=== PATIENT | male | born 1970 | race Caucasian/White ===

== ENCOUNTER 2019-05-16 17:48 | Inpatient (IN) | payer BC, OTHER ==
[2019-05-16] MEDS ORDERED: NORMAL SALINE 1000 ML 1,000 ML IV ONE (18:03)
--- NOTE | 2019-05-16 18:05 | ER Document Report ---
ED Medical Screen (RME) - General Chief Complaint: Abdominal Pain Stated Complaint: STOMACH PAIN Time Seen by Provider: 05/16/19 17:58 Primary Care Provider: SUSANNA CARMONA MD [Primary Care Provider] - Follow up as needed Information source: Patient Notes: Patient presents complaining of abdominal pain with nausea and vomiting for the past 4 days. Patient states he last vomited yesterday although does have nausea today. Patient complains of brown urine and increased heart rate. I have greeted and performed a rapid initial assessment of this patient. A comprehensive ED assessment and evaluation of the patient, analysis of test results and completion of the medical decision making process will be conducted by additional ED providers. - Related Data Allergies/Adverse Reactions: No Known Allergies Allergy (Verified 05/16/19 17:56) Physical Exam - Vital signs Vitals: Temp Pulse Resp BP Pulse Ox 98.1 F 134 H 16 125/98 H 96 05/16/19 17:52 05/16/19 17:52 05/16/19 17:52 05/16/19 17:52 05/16/19 17:52 - General General appearance: Alert Notes: Heart rate 120s, generalized abdominal tenderness Course - Vital Signs Vital signs: Temp Pulse Resp BP Pulse Ox 98.1 F 134 H 16 125/98 H 96 05/16/19 17:52 05/16/19 17:52 05/16/19 17:52 05/16/19 17:52 05/16/19 17:52 Doctor's Discharge - Discharge Referrals: SUSANNA CARMONA MD [Primary Care Provider] - Follow up as needed
--- NOTE | 2019-05-16 18:41 | RADIOLOGY REPORT (SQ) ---
EXAM DESCRIPTION: ACUTE ABDOMEN SERIES COMPLETED DATE/TIME: 05/16/2019 6:24 pm REASON FOR STUDY: generalized abd pain COMPARISON: None. NUMBER OF VIEWS: Three views. TECHNIQUE: PA chest, supine abdomen and upright/decubitus abdomen radiographic images acquired. LIMITATIONS: None. FINDINGS: CHEST: Lungs clear of infiltrates. FREE AIR: None. No abnormal gas collections. BOWEL GAS PATTERN: Few scattered small bowel loops with air fluid levels. No distended large or small bowel loops. CALCIFICATIONS: No suspicious calcifications. HARDWARE: None in the abdomen. SOFT TISSUES: No gross mass or suggestion of organomegaly. BONES: No acute fracture. No worrisome bone lesions. OTHER: No other significant finding. IMPRESSION: NONSPECIFIC BOWEL GAS PATTERN WITHOUT EVIDENCE FOR OBSTRUCTION. TECHNICAL DOCUMENTATION: JOB ID: [id number]- All Rights Reserved Reading location - IP/workstation name: [email or web address]
[2019-05-16 18:50] LABS: APPEARANCE,URINE CLOUDY; BILIRUBIN,URINE SMALL (NEGATIVE); COLOR,URINE AMBER; GLUCOSE, URINE NEGATIVE (NEGATIVE); KETONES,URINE TRACE mg/dL (NEGATIVE); PROTEIN,URINE 100 mg/dL (NEGATIVE); URINE SPECIFIC GRAVITY 1.023
[2019-05-16 19:32] LABS: HEMATOCRIT 52.5 % (37.9-51.0); MEAN CORPUSCULAR HEMOGLOBIN 31.9 pg (27.0-33.4); MEAN CORPUSCULAR HGB CONC 34.2 g/dL (32.0-36.0); MEAN CORPUSCULAR VOLUME 94 fl (80-97); PLATELET COUNT 168 10^3/uL (150-450); RED BLOOD COUNT 5.62 10^6/uL (4.35-5.55); RED CELL DISTRIBUTION WIDTH 13.9 % (11.5-14.0); WHITE BLOOD COUNT 24.6 10^3/uL (4.0-10.5)
[2019-05-16 19:51] LABS: ABSOLUTE LYMPHOCYTES# (MANUAL) 0.7 10^3/uL (0.5-4.7); ABSOLUTE MONOCYTES # (MANUAL) 2.5 10^3/uL (0.1-1.4); BAND NEUTROPHILS % (MANUAL) 2 % (3-5); BASOPHILS % (MANUAL) 0 % (0-2); EOSINOPHILS % (MANUAL) 0 % (0-6); LYMPHOCYTES % (MANUAL) 3 % (13-45); MONOCYTES % (MANUAL) 10 % (3-13); SEGMENTED NEUTROPHILS % (MAN) 85 % (42-78); TOTAL CELLS COUNTED 100
[2019-05-16 19:52] LABS: PLATELET COMMENT ADEQUATE; RBC MORPHOLOGY COMMENT NORMO-CYTIC/CHROMIC
[2019-05-16 19:55] LABS: ALBUMIN 3.6 g/dL (3.5-5.0); ALKALINE PHOSPHATASE 98 U/L (38-126); ANION GAP 10 (5-19); ASPARTATE AMINO TRANSFERASE 87 U/L (17-59); BILIRUBIN,DIRECT 1.5 mg/dL (0.0-0.4); BILIRUBIN,TOTAL 2.9 mg/dL (0.2-1.3); BLOOD UREA NITROGEN 11 mg/dL (7-20); CALCIUM 9.1 mg/dL (8.4-10.2); CARBON DIOXIDE 28 mmol/L (22-30); CHLORIDE 92 mmol/L (98-107); GLUCOSE 112 mg/dL (75-110); POTASSIUM 3.5 mmol/L (3.6-5.0); TOTAL PROTEIN 6.3 g/dL (6.3-8.2)
[2019-05-16] MEDS ORDERED: ONDANSETRON HCL INJ/PF 4 MG/2 ML SDV IV ONE ×2 (19:58→23:18)
[2019-05-16] MEDS ORDERED: HYDROMORPHONE HCL INJ/PF 2 MG/ML AMPULE IV ONE ×2 (19:58→23:18)
[2019-05-16] MEDS ORDERED: CEFTRIAXONE 2 GM/D5W RTU 2 GM/50 ML RTUPB IV ONE (19:58)
--- NOTE | 2019-05-16 21:11 | RADIOLOGY REPORT (SQ) ---
EXAM DESCRIPTION: CT abdomen pelvis with IV contrast. CLINICAL HISTORY: 48 years Male diverticulitis COMPARISON: Abdominal series from today. TECHNIQUE: Axial images with IV contrast. Contrast dose not available. Sagittal coronal reconstruction. This exam was performed according to our departmental dose-optimization program, which includes automated exposure control, adjustment of the mA and/or kV according to patient size and/or use of iterative reconstruction technique. FINDINGS: Small left lower lobe atelectasis. Diffuse fatty liver. Low-density in the anterior aspect of the left lobe of the liver is consistent with normal variation. Moderate to prominent distention of the gallbladder. No obvious wall thickening. No significant biliary dilatation. Question subtle common bile duct wall thickening. Series 601 image 33. Spleen, adrenal glands, para-aortic regions, kidneys are unremarkable. Mildly atherosclerotic minimally ectatic aorta. Mild diffuse enlargement of the pancreas. Diffuse mild immediate peripancreatic edema. Additional fluid in the anterior pararenal spaces bilaterally and extending inferiorly in the retroperitoneum and adjacent mesentery. Possible small fluid collections. No dominant fluid collection and no fluid collection with well-defined logan. Suspected thickening of the duodenum adjacent to the pancreas. Small bowel loops are otherwise unremarkable. Mildly dilated right and transverse colon. Contracted left colon with prominence of submucosal fat. This sometimes is seen with previous colitis. There is no acute colitis. CT of the pelvis demonstrates inwk-[id number]-ggwubrko free fluid. Some appears mildly loculated but no obvious well-defined cystic structure. Urinary bladder unremarkable. Distal colon is unremarkable. No adenopathy. IMPRESSION: 1. Suspected acute pancreatitis. Mainly peripancreatic component. No obvious necrotizing pancreatitis. The surrounding edema/fluid is widespread but not prominent. Specifically, no suspicious large fluid collection and no obvious fluid collection with well-defined logan. There is also [id number] ascites in the pelvis. 2. Secondary thickening of the duodenum. Mild right colonic dilatation. Contracted left colon with prominence of submucosal fat. 3. Fatty liver. 4. Tiny left lower lobe atelectasis. 5. Distended gallbladder. No obvious gallbladder wall thickening. No biliary dilatation. Possible minimal common bile duct wall thickening.
--- NOTE | 2019-05-16 21:44 | ER Document Report ---
ED GI/ - General Chief Complaint: Abdominal Pain Stated Complaint: STOMACH PAIN Time Seen by Provider: 05/16/19 17:58 Primary Care Provider: SUSANNA CARMONA MD [Primary Care Provider] - Follow up as needed Information source: Patient - HPI Patient complains to provider of: Abdominal pain. No: Diarrhea, Dysuria, Feeding tube problem, Flank pain, Lopez catheter problem, Groin pain, Hematuria, Testicular pain, Urinary retention, Vomiting, Other Onset: Yesterday Timing/Duration: Gradual. denies: Sudden, Constant, Intermittent, Persistent, Waxing and waning, Better, Worse, Gone Quality of pain: Pressure, Sharp Severity at maximum: Severe Severity in ED: Severe Pain Level: 3 Context: denies: Bad food, Lifting, Out of the country travel, , Recent trauma, Other Location: LUQ. No: Chest pain, Epigastric, LLQ, RUQ, RLQ, Left flank, Right flank, Low back, Suprapubic, Pelvis, Left testicle, Right testicle, Rectal, Other Associated symptoms: Constipation, Vomiting. denies: None, Blood in emesis, Blood in stool, Chest pain, Chills, Coffee ground emesis, Diarrhea, Dizzy, Dysuria, Erection problem, Fever, Foreskin problem, Hard stool, Hematuria, Hematospermia, Hurts to breath, Inguinal mass, Lightheaded, Loss of appetite, Nausea, Painful intercourse, Penile discharge, Radiates to back, Radiates to chest, Radiates to testicles, Radiates to shoulder, Shortness of breath, Sweaty, Syncope, Urinary hesitancy, Urinary frequency, Urinary retention, Urinary urgency, Other Exacerbated by: denies: Denies, Supine, Sitting, Standing, Movement, Walking, Coughing, Deep breathing, Food, Other Relieved by: denies: Denies, Supine, Sitting, Standing, Remaining still, Antacids, Food, Other - Related Data Allergies/Adverse Reactions: No Known Allergies Allergy (Verified 05/16/19 17:56) Past Medical History - General Information source: Patient - Social History Smoking Status: Current Every Day Smoker Family History: None Patient has suicidal ideation: No Patient has homicidal ideation: No Review of Systems - Review of Systems Constitutional: Fever. denies: No symptoms reported, See HPI, Chills, Diaphoresis, Malaise, Weakness, Other, Weight gain, Weight loss, Recent illness EENT: denies: No symptoms reported, See HPI, Eye pain, Eye discharge, Blurred vision, Tearing, Double vision, Ear pain, Ear discharge, Nose pain, Nose congestion, Nose discharge, Sinus pressure, Sinus discharge, Throat pain, Difficulty swallowing, Throat swelling, Mouth pain, Mouth swelling, Dental problem, Vertigo, Other Cardiovascular: denies: No symptoms reported, See HPI, Chest pain, Palpitations, Heart racing, Orthopnea, Dyspnea, Syncope, Dizziness, Lightheaded, Edema, Other, Paroxysmal Nocturnal Dysp Respiratory: denies: No symptoms reported, See HPI, Cough, Hurts to breathe, Hemoptysis, Short of breath, Sputum, Stridor, Wheezing, Other Gastrointestinal: Abdominal pain, Vomiting, Constipation. denies: No symptoms reported, See HPI, Abdomen distended, Diarrhea, Nausea, Blood streaked bowels, Poor appetite, Poor fluid intake, Blood in vomit, Black stools, Rectal bleeding, Last bowel movement, Fecal incontinence, Other Genitourinary: denies: No symptoms reported, See HPI, Burning, Dysuria, Discharge, Frequency, Flank pain, Hematuria, Incontinence, Pain, Urgency, Retention, Other Male Genitourinary: See HPI, Erectile dysfunction, Testicular pain, Penile discharge, Other Neurological/Psychological: denies: No symptoms reported, See HPI, Confusion, Dementia, Depression, Hallucinations, Anxiety, Homicidal ideation, Sensory change, Weakness, Gait changes, Loss of power, Paralysis, Seizure, Lost consciousness, Headaches, Speech impairment, Numbness, Suicidal ideation, Tingling, Tremor, Other Physical Exam - Vital signs Vitals: Temp Pulse Resp BP Pulse Ox 98.1 F 134 H 16 125/98 H 96 05/16/19 17:52 05/16/19 17:52 05/16/19 17:52 05/16/19 17:52 05/16/19 17:52 Notes: PHYSICAL EXAMINATION: GENERAL: Well-appearing, well-nourished and in no acute distress. HEAD: Atraumatic, normocephalic. EYES: Pupils equal round and reactive to light, extraocular movements intact, sclera anicteric, conjunctiva are normal. ENT: nares patent, oropharynx clear without exudates. Moist mucous membranes. NECK: Normal range of motion, supple without lymphadenopathy LUNGS: Breath sounds clear to auscultation bilaterally and equal. No wheezes rales or rhonchi. HEART: Regular rate and rhythm without murmurs ABDOMEN: Soft, tender in luq to palpation, normoactive bowel sounds. No guarding, no rebound. No masses appreciated. : normal testicle on the right side prosthetic testicle on the left side no masses or hernias appreciated EXTREMITIES: Normal range of motion, no pitting or edema. No cyanosis. NEUROLOGICAL: No focal neurological deficits. Moves all extremities spontaneously and on command. PSYCH: Normal mood, normal affect. SKIN: Warm, Dry, normal turgor, no rashes or lesions noted. Course - Vital Signs Vital signs: Temp Pulse Resp BP Pulse Ox 98.1 F 134 H 16 131/90 H 91 L 05/16/19 17:52 05/16/19 17:52 05/16/19 17:52 05/16/19 20:51 05/16/19 20:51 - Laboratory Result Diagrams: 05/16/19 19:14 05/16/19 19:14 Laboratory results interpreted by me: 05/16/19 05/16/19 05/16/19 18:25 19:14 19:14 WBC 24.6 H RBC 5.62 H Hgb 18.0 H Hct 52.5 H Seg Neuts % (Manual) 85 H Band Neutrophils % 2 L Lymphocytes % (Manual) 3 L Abs Neuts (Manual) 21.4 H Abs Monocytes (Manual) 2.5 H Sodium 129.8 L Potassium 3.5 L Chloride 92 L Glucose 112 H Total Bilirubin 2.9 H Direct Bilirubin 1.5 H AST 87 H Lipase 1228.4 H Urine Protein 100 H Urine Ketones TRACE H Urine Blood MODERATE H Urine Bilirubin SMALL H Urine Urobilinogen 4.0 H - Diagnostic Test Radiology reviewed: Image reviewed, Reports reviewed Discharge - Discharge Clinical Impression: Acute pancreatitis Qualifiers: Pancreatitis type: unspecified pancreatitis type Acute pancreatitis complication: unspecified Qualified Code(s): K85.90 - Acute pancreatitis without necrosis or infection, unspecified Condition: Stable Disposition: ADMITTED INPATIENT Admitting Provider: Idalia (Hospitalist) Unit Admitted: Telemetry Referrals: REED BUTLER MD [ACTIVE STAFF] - Follow up as needed
[2019-05-17] MEDS ORDERED: MAGNESIUM HYDROXIDE SUSP 30 ML UDCUP PO PRN (00:45)
[2019-05-17] MEDS ORDERED: MAG HYDROX/AL HYDROX/SIMETH SUSP 30 ML UDCUP PO PRN (00:45)
[2019-05-17] MEDS ORDERED: MORPHINE SULFATE 10 MG/ML INJ IV PRN ×3 (00:57→02:32)
[2019-05-17] MEDS ORDERED: ACETAMINOPHEN 650 MG SUPP.RECT PR PRN (00:57)
[2019-05-17] MEDS ORDERED: ACETAMINOPHEN 325 MG TABLET PO PRN (00:57)
[2019-05-17] MEDS ORDERED: LEVALBUTEROL HCL NEB 0.63 MG/3 ML AMPUL NEB PRN (00:57)
[2019-05-17] MEDS ORDERED: LABETALOL HCL INJ 20 MG/4 ML DISP.SYRIN IV PRN (00:57)
[2019-05-17] MEDS ORDERED: FAMOTIDINE INJ/PF 20 MG/2 ML SDV IV ONE (01:15)
[2019-05-17] MEDS: ONDANSETRON HCL INJ/PF 4 MG/2 ML SDV IV PRN (03:03)
[2019-05-17 03:43] LABS: APPEARANCE,URINE SLIGHTLY-CLOUDY; BILIRUBIN,URINE NEGATIVE (NEGATIVE); COLOR,URINE AMBER; GLUCOSE, URINE NEGATIVE (NEGATIVE); KETONES,URINE 20 mg/dL (NEGATIVE); LEUKOCYTE ESTERASE,URINE NEGATIVE (NEGATIVE); NITRITE,URINE NEGATIVE (NEGATIVE); PROTEIN,URINE 100 mg/dL (NEGATIVE); URINE SPECIFIC GRAVITY 1.032
--- NOTE | 2019-05-17 04:20 | PDOC H&P ---
History of Present Illness Admission Date/PCP: 05/16/19 22:09 REED BUTLER Patient complains of: Abdominal pain History of Present Illness: WAYNE MEADE is a 48 year old male who presented to the emergency room with a 4-day history of abdominal pain. Patient admits to gradually worsening pain over the last 4 days becoming severe today. The pain was located in epigastrium initially but gradually moved down to his upper periumbilical abdomen and is a constant "sharp" pressure radiating through to his back. The pain has been accompanied by nausea with vomiting and is associated with the development of dark brown urine. He denies any additional accompanying or associated signs or symptoms. He denies prior similar episodes. He has not identified any aggravating or ameliorating factors for his abdominal pain. In the emergency room the patient was found to have an elevated lipase of [address] scan consistent with acute pancreatitis. Patient was subsequently admitted to the hospital for further evaluation treatment. Past Medical History Cardiac Medical History: Denies: Coronary Artery Disease, Myocardial Infarction, Hyperlipidema, Hypertension Pulmonary Medical History: Denies: Asthma, Chronic Obstructive Pulmonary Disease (COPD) EENT Medical History: Denies: Cataracts, Ears - Hearing aids Neurological Medical History: Denies: Hemorrhagic CVA, Ischemic CVA, Seizures Endocrine Medical History: Denies: Diabetes Mellitus Type 1, Diabetes Mellitus Type 2, Hyperthyroidism, Hypothyroidism, Obesity Renal/ Medical History: Denies: Chronic Kidney Disease, Nephrolithiasis Malignancy Medical History: Reports: None GI Medical History: Denies: Cirrhosis, Crohn's Disease, Gastroesophageal Reflux Disease, Hepatitis, Peptic Ulcer Disease, Ulcerative Colitis Musculoskeltal Medical History: Denies: Arthritis, Gout Skin Medical History: Denies: Eczema, Psoriasis Psychiatric Medical History: Denies: Alcohol Dependency, Substance Abuse, Tobacco Dependency Traumatic Medical History: Reports: None Hematology: Denies: Anemia, Bleeding Tendencies Infectious Medical History: Reports: None Past Surgical History Past Surgical History: Reports: Other - Nasal septal deviation repair Social History Information Source: Patient Lives with: Spouse/Significant other Smoking Status: Former Smoker Electronic Cigarette use?: Yes Frequency of Alcohol Use: Social - 1 or 2 times per week consuming 1-4 cocktails per event Hx Recreational Drug Use: No Drugs: None Hx Prescription Drug Abuse: No - Advance Directive Resuscitation Status: Full Code Surrogate healthcare decision maker:: Mariano Veroniak Family History Family History: CAD, DM, Hyperlipidemia - Hyper lipidemia with severe hypertriglyceridemia, Hypertension, Other - Peripheral vascular disease Parental Family History Reviewed: Yes Children Family History Reviewed: No Sibling(s) Family History Reviewed.: Yes Medication/Allergy Allergies/Adverse Reactions: No Known Allergies Allergy (Verified 05/16/19 17:56) Review of Systems Constitutional: ABSENT: chills, fever(s) Eyes: ABSENT: visual disturbances, other - Eye pain Ears: ABSENT: hearing changes, other - Ear pain Nose, Mouth, and Throat: ABSENT: mouth pain, sore throat Cardiovascular: ABSENT: chest pain, palpitations Respiratory: ABSENT: cough, dyspnea Gastrointestinal: PRESENT: as per HPI, abdominal pain, nausea, vomiting. ABSENT: constipation, diarrhea, melena Genitourinary: ABSENT: dysuria, hematuria Musculoskeletal: PRESENT: as per HPI, back pain. ABSENT: joint swelling, muscle weakness Integumentary: ABSENT: pruritus, rash Neurological: ABSENT: confusion, convulsions, focal weakness, memory loss, syncope Psychiatric: ABSENT: anxiety, depression Endocrine: ABSENT: cold intolerance, heat intolerance Hematologic/Lymphatic: ABSENT: easy bleeding, easy bruising Allergic/Immunologic: ABSENT: seasonal rhinorrhea Physical Exam Vital Signs: Temp Pulse Resp BP Pulse Ox 98.1 F 134 H 16 138/98 H 95 05/16/19 17:52 05/16/19 17:52 05/16/19 17:52 05/16/19 22:01 05/16/19 22:01 Intake & Output 05/14/19 05/15/19 05/16/19 23:59 23:59 23:59 Intake Total 1050 Balance 1050 Weight 78.6 kg General appearance: PRESENT: cooperative, mild distress - Secondary to abdominal pain Head exam: PRESENT: atraumatic, normocephalic Eye exam: PRESENT: conjunctiva pink, scleral icterus - Minimal. ABSENT: c onjunctival injection Ear exam: PRESENT: normal external ear exam. ABSENT: bleeding, drainage Mouth exam: PRESENT: dry mucosa, neck supple Neck exam: ABSENT: thyromegaly, tracheal deviation Respiratory exam: PRESENT: clear to auscultation regina, symmetrical, unlabored Cardiovascular exam: PRESENT: RRR, tachycardia. ABSENT: clicks, gallop, rubs Pulses: PRESENT: normal radial pulses, normal dorsalis pedis pul Vascular exam: PRESENT: normal capillary refill. ABSENT: pallor GI/Abdominal exam: PRESENT: hypoactive bowel sounds, soft, tenderness - Bilateral upper quadrants moderately tender to palpation without localization Rectal exam: PRESENT: deferred Extremities exam: ABSENT: joint swelling, pedal edema Musculoskeletal exam: ABSENT: deformity, dislocation Neurological exam: PRESENT: alert, oriented to person, oriented to time, oriented to situation, reflexes normal, CN II-XII grossly intact. ABSENT: motor sensory deficit Psychiatric exam: PRESENT: appropriate affect, normal mood Skin exam: PRESENT: dry, intact, jaundice - Mild, warm. ABSENT: rash, urticaria Results Laboratory Results: 05/16/19 19:14 05/16/19 19:14 05/16/19 05/16/19 05/16/19 18:25 19:14 19:14 WBC 24.6 H RBC 5.62 H Hgb 18.0 H Hct 52.5 H MCV 94 MCH 31.9 MCHC 34.2 RDW 13.9 Plt Count 168 Seg Neutrophils % Not Reportable Sodium 129.8 L Potassium 3.5 L Chloride 92 L Carbon Dioxide 28 Anion Gap 10 BUN 11 Creatinine 0.84 Est GFR ( Amer) > 60 Glucose 112 H Lactic Acid Calcium 9.1 Total Bilirubin 2.9 H AST 87 H Alkaline Phosphatase 98 Total Protein 6.3 Albumin 3.6 Lipase 1228.4 H Urine Color MICHELLE Urine Appearance CLOUDY Urine pH 5.0 Ur Specific Bode 1.023 Urine Protein 100 H Urine Glucose (UA) NEGATIVE Urine Ketones TRACE H Urine Blood MODERATE H Urine RBC (Auto) 2 05/16/19 20:13 WBC RBC Hgb Hct MCV MCH MCHC RDW Plt Count Seg Neutrophils % Sodium Potassium Chloride Carbon Dioxide Anion Gap BUN Creatinine Est GFR ( Amer) Glucose Lactic Acid 0.8 Calcium Total Bilirubin AST Alkaline Phosphatase Total Protein Albumin Lipase Urine Color Urine Appearance Urine pH Ur Specific Bode Urine Protein Urine Glucose (UA) Urine Ketones Urine Blood Urine RBC (Auto) Impressions: Acute Abdomen Series 05/16/19 18:03 IMPRESSION: NONSPECIFIC BOWEL GAS PATTERN WITHOUT EVIDENCE FOR OBSTRUCTION. Abdomen/Pelvis CT 05/16/19 19:55 IMPRESSION: 1. Suspected acute pancreatitis. Mainly peripancreatic component. No obvious necrotizing pancreatitis. The surrounding edema/fluid is widespread but not prominent. Specifically, no suspicious large fluid collection and no obvious fluid collection with well-defined logan. There is also [id number] ascites in the pelvis. 2. Secondary thickening of the duodenum. Mild right colonic dilatation. Contracted left colon with prominence of submucosal fat. 3. Fatty liver. 4. Tiny left lower lobe atelectasis. 5. Distended gallbladder. No obvious gallbladder wall thickening. No biliary dilatation. Possible minimal common bile duct wall thickening. Assessment and Plan - Diagnosis (1) Abdominal pain Qualifiers: Abdominal location: upper abdomen, unspecified Qualified Code(s): R10.10 - Upper abdominal pain, unspecified Is this a current diagnosis for this admission?: Yes Plan: Patient's abdominal pain be treated with morphine sulfate 2 to 4 mg IV every 2 hours on an as needed basis utilizing a sliding scale for pain. (2) Nausea and vomiting Qualifiers: Vomiting type: unspecified Vomiting Intractability: non-intractable Qualified Code(s): R11.2 - Nausea with vomiting, unspecified Is this a current diagnosis for this admission?: Yes Plan: Patient's nausea and vomiting be treated with supportive care is utilizing IV fluids and symptomatic cares utilizing Zofran 4 mg IV every 4 hours on a as needed basis. (3) Acute pancreatitis Qualifiers: Pancreatitis type: unspecified pancreatitis type Acute pancreatitis complication: unspecified Qualified Code(s): K85.90 - Acute pancreatitis without necrosis or infection, unspecified Is this a current diagnosis for this admission?: Yes Plan: The patient will be treated with initial GI rest until he develops an appetite and then a diet will be started. He will be given clear liquids until that time. He will be followed with daily CBCs, metabolic profiles, magnesium levels, liver functions, amylase and lipase levels. A lipid profile and a thy roid profile will also be obtained. (4) Tachycardia Is this a current diagnosis for this admission?: Yes Plan: Patient will receive IV fluids and will be monitored on telemetry bed. - Time Time Spent with patient: 25-34 minutes Smoking Cessation Education: 3 to 10 minutes Medications reviewed and adjusted accordingly: Yes Anticipated discharge: Home - Inpatient Certification Based on my medical assessment, after consideration of the patient's comorbidities, presenting symptoms, or acuity I expect that the services needed warrant INPATIENT care.: Yes I certify that my determination is in accordance with my understanding of Medicare's requirements for reasonable and necessary INPATIENT services [42 CFR 412.3e].: Yes Medical Necessity: Need Close Monitoring Due to Risk of Patient Decompensation, Need For IV Fluids, Need For Continuous Telemetry Monitoring, Need for Pain Control, Risk of Complication if Not Cared For in Hospital
[2019-05-17] MEDS: MORPHINE SULFATE 10 MG/ML INJ IV PRN ×2 (05:05→07:42)
[2019-05-17] MEDS: DEXTROSE 5%-LACTATED RINGERS 1,000 ML IV PRN ×5 (05:16→22:38)
[2019-05-17 05:25] LABS: AMYLASE 133 U/L (30-110); TRIGLYCERIDES 129 mg/dL (<150)
[2019-05-17 05:27] LABS: ANION GAP 11 (5-19); BLOOD UREA NITROGEN 11 mg/dL (7-20); CALCIUM 8.8 mg/dL (8.4-10.2); CARBON DIOXIDE 29 mmol/L (22-30); CHLORIDE 91 mmol/L (98-107); GLUCOSE 82 mg/dL (75-110); POTASSIUM 3.5 mmol/L (3.6-5.0)
[2019-05-17 05:36] LABS: DIRECT LDL 49 mg/dL (<100)
[2019-05-17 05:43] LABS: FREE T3 3.21 pg/mL (2.77-5.27); FREE T4 (FREE THYROXINE) 1.28 ng/dL (0.78-2.19)
[2019-05-17] MEDS: HEPARIN SOD (PORCINE) 5,000 UNIT/ML 1 ML VIAL SUBCUT SCH ×3 (05:43→21:05)
[2019-05-17 05:57] LABS: THYROID STIMULATING HORMONE 1.41 uIU/mL (0.47-4.68)
[2019-05-17] MEDS: METOCLOPRAMIDE HCL INJ/PF 10 MG/2 ML SDV IV SCH ×4 (07:43→21:04)
[2019-05-17] MEDS: FAMOTIDINE INJ/PF 20 MG/2 ML SDV IV SCH ×2 (09:54→21:04)
[2019-05-17] MEDS ORDERED: DOCUSATE SODIUM 100 MG/10 ML UDC PO SCH (10:00)
[2019-05-17] MEDS: NICOTINE 21 MG/24 HR PATCH.TD24 TD PRN (10:06)
[2019-05-17] MEDS: HYDROMORPHONE HCL INJ/PF 2 MG/ML AMPULE IV PRN ×4 (10:07→22:09)
[2019-05-17] MEDS: ALPRAZOLAM 0.5 MG TABLET PO SCH ×2 (12:45→17:54)
[2019-05-17] MEDS: HYDROCODONE/ACETAMINOPHEN 10-325 MG TABLET PO SCH ×2 (13:14→21:04)
[2019-05-17] MEDS: CARISOPRODOL 350 MG TABLET PO SCH ×2 (13:16→21:11)
--- NOTE | 2019-05-17 13:17 | PDOC PROGRESS REPORT ---
Subjective Progress Note for:: 05/17/19 Subjective:: 05/17/2019 Patient is still complaining of abdominal pain today states the morphine is not working. Complaining of back pain as well for both flanks. No vomiting.. S tates he finished a bottle of new NuGenex which is a [employer] product about 2 weeks ago patient states he is never taken his medication or supplement before. Patient has never had pancreatitis before Her graph patient is on multiple medications for pain her to admission including Soma Xanax [place] and Celexa. Obviously these are also antidepressants and antianxiety medicines. This may explain why the morphine is not as effective. I have resumed his home medicines and switched him to Dilaudid. Continued to be just sips and chips Reason For Visit: ACUTE PANCREATITIS Physical Exam Vital Signs: Temp Pulse Resp BP Pulse Ox 98.0 F 110 H 17 163/88 H 94 05/17/19 11:52 05/17/19 11:52 05/17/19 11:52 05/17/19 11:52 05/17/19 11:52 Intake & Output 05/16/19 05/17/19 05/18/19 06:59 06:59 06:59 Intake Total 1050 1000 Balance 1050 1000 Weight 78.1 kg General appearance: PRESENT: mild distress Respiratory exam: PRESENT: clear to auscultation regina. ABSENT: rales, rhonchi, wheezes Cardiovascular exam: PRESENT: RRR. ABSENT: diastolic murmur, rubs, systolic murmur GI/Abdominal exam: PRESENT: normal bowel sounds, soft, tenderness, other - Epigastric region. ABSENT: distended, guarding, mass, organolmegaly, rebound Neurological exam: PRESENT: alert, awake, oriented to person, oriented to place, oriented to time, oriented to situation, CN II-XII grossly intact. ABSENT: motor sensory deficit Psychiatric exam: PRESENT: appropriate affect, normal mood. ABSENT: homicidal ideation, suicidal ideation Results Laboratory Results: 05/16/19 19:14 05/17/19 04:56 05/16/19 05/16/19 05/16/19 18:25 19:14 19:14 WBC 24.6 H RBC 5.62 H Hgb 18.0 H Hct 52.5 H MCV 94 MCH 31.9 MCHC 34.2 RDW 13.9 Plt Count 168 Seg Neutrophils % Not Reportable Sodium 129.8 L Potassium 3.5 L Chloride 92 L Carbon Dioxide 28 Anion Gap 10 BUN 11 Creatinine 0.84 Est GFR ( Amer) > 60 Glucose 112 H Lactic Acid Calcium 9.1 Total Bilirubin 2.9 H AST 87 H Alkaline Phosphatase 98 Ammonia Total Protein 6.3 Albumin 3.6 Triglycerides Cholesterol LDL Cholesterol Direct VLDL Cholesterol HDL Cholesterol Amylase Lipase 1228.4 H TSH Free T4 Free T3 pg/mL Urine Color MICHELLE Urine Appearance CLOUDY Urine pH 5.0 Ur Specific [place] 1.023 Urine Protein 100 H Urine Glucose (UA) NEGATIVE Urine Ketones TRACE H Urine Blood MODERATE H Urine Nitrite Ur Leukocyte Esterase Urine WBC (Auto) Urine RBC (Auto) 2 05/16/19 05/17/19 05/17/19 20:13 03:10 04:56 WBC RBC Hgb Hct MCV MCH MCHC RDW Plt Count Seg Neutrophils % Sodium Potassium Chloride Carbon Dioxide Anion Gap BUN Creatinine Est GFR ( Amer) Glucose Lactic Acid 0.8 Calcium Total Bilirubin AST Alkaline Phosphatase Ammonia Total Protein Albumin Triglycerides Cholesterol LDL Cholesterol Direct VLDL Cholesterol HDL Cholesterol Amylase Lipase TSH 1.41 Free T4 1.28 Free T3 pg/mL 3.21 Urine Color MICHELLE Urine Appearance SLIGHTLY-CLOUDY Urine pH 6.0 Ur Specific [place] 1.032 Urine Protein 100 H Urine Glucose (UA) NEGATIVE Urine Ketones 20 H Urine Blood SMALL H Urine Nitrite NEGATIVE Ur Leukocyte Esterase NEGATIVE Urine WBC (Auto) 2 Urine RBC (Auto) 1 05/17/19 05/17/19 05/17/19 04:56 04:56 04:56 WBC RBC Hgb Hct MCV MCH MCHC RDW Plt Count Seg Neutrophils % Sodium 130.8 L Potassium 3.5 L Chloride 91 L Carbon Dioxide 29 Anion Gap 11 BUN 11 Creatinine 0.84 Est GFR ( Amer) > 60 Glucose 82 Lactic Acid Calcium 8.8 Total Bilirubin AST Alkaline Phosphatase Ammonia 8.8 L Total Protein Albumin Triglycerides 129 Cholesterol 111.50 LDL Cholesterol Direct 49 VLDL Cholesterol 26.0 HDL Cholesterol 37 L Amylase 133 H Lipase 766.3 H TSH Free T4 Free T3 pg/mL Urine Color Urine Appearance Urine pH Ur Specific [place] Urine Protein Urine Glucose (UA) Urine Ketones Urine Blood Urine Nitrite Ur Leukocyte Esterase Urine WBC (Auto) Urine RBC (Auto) Impressions: Acute Abdomen Series 05/16/19 18:03 IMPRESSION: NONSPECIFIC BOWEL GAS PATTERN WITHOUT EVIDENCE FOR OBSTRUCTION. Abdomen/Pelvis CT 05/16/19 19:55 IMPRESSION: 1. Suspected acute pancreatitis. Mainly peripancreatic component. No obvious necrotizing pancreatitis. The surrounding edema/fluid is widespread but not prominent. Specifically, no suspicious large fluid collection and no obvious fluid collection with well-defined logan. There is also [id number] ascites in the pelvis. 2. Secondary thickening of the duodenum. Mild right colonic dilatation. Contracted left colon with prominence of submucosal fat. 3. Fatty liver. 4. Tiny left lower lobe atelectasis. 5. Distended gallbladder. No obvious gallbladder wall thickening. No biliary dilatation. Possible minimal common bile duct wall thickening. Assessment and Plan - Diagnosis (1) Anxiety Is this a current diagnosis for this admission?: Yes (2) Chronic pain Is this a current diagnosis for this admission?: Yes (3) Abdominal pain Qualifiers: Abdominal location: upper abdomen, unspecified Qualified Code(s): R10.10 - Upper abdominal pain, unspecified Is this a current diagnosis for this admission?: Yes (4) Acute pancreatitis Qualifiers: Pancreatitis type: unspecified pancreatitis type Acute pancreatitis complication: unspecified Qualified Code(s): K85.90 - Acute pancreatitis without necrosis or infection, unspecified Is this a current diagnosis for this admission?: Yes (5) Nausea and vomiting Qualifiers: Vomiting type: unspecified Vomiting Intractability: non-intractable Qualified Code(s): R11.2 - Nausea with vomiting, unspecified Is this a current diagnosis for this admission?: Yes (6) Tachycardia Is this a current diagnosis for this admission?: Yes - Plan Summary Summary: 05/17/2019 I DC'd the morphine and switched to Dilaudid I have added his home medications of Celexa [place] soma and Xanax. A.m. also going to add Toradol 30 mg IV every 6 hours as needed Continue patient sips and chips until improved. Pace is down to 766 this morning white count is still elevated - Time Time Spent with patient: 35 or more minutes
[2019-05-17] MEDS ORDERED: KETOROLAC TROMETHAMINE INJ/PF 30 MG/1 ML SDV IV PRN (13:18)
[2019-05-17 14:57] LABS: HEMATOCRIT 42.6 % (37.9-51.0); MEAN CORPUSCULAR HEMOGLOBIN 32.4 pg (27.0-33.4); MEAN CORPUSCULAR HGB CONC 34.6 g/dL (32.0-36.0); MEAN CORPUSCULAR VOLUME 94 fl (80-97); PLATELET COUNT 120 10^3/uL (150-450); RED BLOOD COUNT 4.55 10^6/uL (4.35-5.55); RED CELL DISTRIBUTION WIDTH 13.6 % (11.5-14.0); WHITE BLOOD COUNT 16.5 10^3/uL (4.0-10.5)
[2019-05-17 15:17] LABS: HEMOGLOBIN 14.7 g/dL (13.5-17.0)
[2019-05-17 15:40] LABS: ABSOLUTE LYMPHOCYTES# (MANUAL) 0.3 10^3/uL (0.5-4.7); BAND NEUTROPHILS % (MANUAL) 2 % (3-5); BASOPHILS % (MANUAL) 0 % (0-2); EOSINOPHILS % (MANUAL) 0 % (0-6); LYMPHOCYTES % (MANUAL) 2 % (13-45); MONOCYTES % (MANUAL) 6 % (3-13); PLATELET COMMENT DECREASED; RBC MORPHOLOGY COMMENT NORMO-CYTIC/CHROMIC; SEGMENTED NEUTROPHILS % (MAN) 90 % (42-78); TOTAL CELLS COUNTED 100
[2019-05-17] MEDS ORDERED: DEXTROSE 40% GEL 15 GM TUBE PO PRN ×2 (17:13)
[2019-05-17] MEDS ORDERED: DEXTROSE 50%-WATER 25 GM/50 ML DISP.SYRIN IV PRN ×2 (17:13)
[2019-05-17] MEDS ORDERED: GLUCAGON,HUMAN RECOMB 1 MG INJ SUBCUT PRN (17:13)
[2019-05-17] MEDS: DOCUSATE SODIUM 100 MG CAPSULE PO SCH (17:54)
[2019-05-18] MEDS: HYDROMORPHONE HCL INJ/PF 2 MG/ML AMPULE IV PRN ×3 (02:18→10:58)
[2019-05-18] MEDS: DEXTROSE 5%-LACTATED RINGERS 1,000 ML IV PRN ×4 (02:20→21:16)
[2019-05-18 04:38] LABS: HEMATOCRIT 39.3 % (37.9-51.0); HEMOGLOBIN 13.7 g/dL (13.5-17.0); MEAN CORPUSCULAR HEMOGLOBIN 32.9 pg (27.0-33.4); MEAN CORPUSCULAR HGB CONC 34.7 g/dL (32.0-36.0); MEAN CORPUSCULAR VOLUME 95 fl (80-97); PLATELET COUNT 119 10^3/uL (150-450); RED BLOOD COUNT 4.15 10^6/uL (4.35-5.55); RED CELL DISTRIBUTION WIDTH 13.7 % (11.5-14.0); WHITE BLOOD COUNT 12.8 10^3/uL (4.0-10.5)
[2019-05-18] MEDS: HEPARIN SOD (PORCINE) 5,000 UNIT/ML 1 ML VIAL SUBCUT SCH ×3 (05:09→21:16)
[2019-05-18] MEDS: HYDROCODONE/ACETAMINOPHEN 10-325 MG TABLET PO SCH ×2 (05:15→13:12)
[2019-05-18] MEDS: CARISOPRODOL 350 MG TABLET PO SCH ×3 (05:15→21:15)
[2019-05-18] MEDS ORDERED: INFLUENZA QUAD (6MOS+) 2019-20 VAC 0.5 ML SYR IM ONE (08:00)
[2019-05-18] MEDS: ALPRAZOLAM 0.5 MG TABLET PO SCH ×2 (09:59→17:23)
[2019-05-18] MEDS: FAMOTIDINE INJ/PF 20 MG/2 ML SDV IV SCH ×2 (09:59→21:15)
[2019-05-18] MEDS: CITALOPRAM HYDROBROMIDE 20 MG TABLET PO SCH (09:59)
[2019-05-18] MEDS: METOCLOPRAMIDE HCL INJ/PF 10 MG/2 ML SDV IV SCH ×4 (09:59→21:15)
[2019-05-18] MEDS: DOCUSATE SODIUM 100 MG CAPSULE PO SCH ×2 (09:59→17:23)
--- NOTE | 2019-05-18 16:00 | PDOC PROGRESS REPORT ---
Subjective Progress Note for:: 05/18/19 Subjective:: 05/17/2019 Patient is still complaining of abdominal pain today states the morphine is not working. Complaining of back pain as well for both flanks. No vomiting.. S tates he finished a bottle of new NuGenex which is a [employer] product about 2 weeks ago patient states he is never taken his medication or supplement before. Patient has never had pancreatitis before Her graph patient is on multiple medications for pain her to admission including Soma Xanax [place] and Celexa. Obviously these are also antidepressants and antianxiety medicines. This may explain why the morphine is not as effective. I have resumed his home medicines and switched him to Dilaudid. Continued to be just sips and chips. 05/18/19 Patient's vital signs are stable blood pressure this morning 134/76, PULSE between 85 and 107 Reason For Visit: ACUTE PANCREATITIS Physical Exam Vital Signs: Temp Pulse Resp BP Pulse Ox 99.4 F 98 16 134/76 H 95 05/18/19 03:11 05/18/19 14:00 05/18/19 03:11 05/18/19 03:11 05/18/19 03:11 Intake & Output 05/17/19 05/18/19 05/19/19 06:59 06:59 06:59 Intake Total 1050 6285 Balance 1050 6285 Weight 78.1 kg 81.9 kg General appearance: PRESENT: no acute distress, other - Walking around to the bathroom by himself, complaining of being hungry Respiratory exam: PRESENT: clear to auscultation regina. ABSENT: rales, rhonchi, wheezes Cardiovascular exam: PRESENT: RRR. ABSENT: diastolic murmur, rubs, systolic murmur GI/Abdominal exam: PRESENT: normal bowel sounds, soft. ABSENT: distended, guarding, mass, organolmegaly, rebound, tenderness Neurological exam: PRESENT: alert, awake, oriented to person, oriented to place, oriented to time, oriented to situation, CN II-XII grossly intact. ABSENT: motor sensory deficit Psychiatric exam: PRESENT: appropriate affect, normal mood. ABSENT: homicidal ideation, suicidal ideation Results Laboratory Results: 05/18/19 03:57 05/17/19 04:56 05/18/19 05/18/19 03:57 03:57 WBC 12.8 H RBC 4.15 L Hgb 13.7 Hct 39.3 MCV 95 MCH 32.9 MCHC 34.7 RDW 13.7 Plt Count 119 L Magnesium 2.2 Amylase 38 Lipase 163.9 Impressions: Acute Abdomen Series 05/16/19 18:03 IMPRESSION: NONSPECIFIC BOWEL GAS PATTERN WITHOUT EVIDENCE FOR OBSTRUCTION. Abdomen/Pelvis CT 05/16/19 19:55 IMPRESSION: 1. Suspected acute pancreatitis. Mainly peripancreatic component. No obvious necrotizing pancreatitis. The surrounding edema/fluid is widespread but not prominent. Specifically, no suspicious large fluid collection and no obvious fluid collection with well-defined logan. There is also [id number] ascites in the pelvis. 2. Secondary thickening of the duodenum. Mild right colonic dilatation. Contracted left colon with prominence of submucosal fat. 3. Fatty liver. 4. Tiny left lower lobe atelectasis. 5. Distended gallbladder. No obvious gallbladder wall thickening. No biliary dilatation. Possible minimal common bile duct wall thickening. Assessment and Plan - Diagnosis (1) Anxiety Is this a current diagnosis for this admission?: Yes (2) Chronic pain Is this a current diagnosis for this admission?: Yes (3) Abdominal pain Qualifiers: Abdominal location: upper abdomen, unspecified Qualified Code(s): R10.10 - Upper abdominal pain, unspecified Is this a current diagnosis for this admission?: Yes (4) Acute pancreatitis Qualifiers: Pancreatitis type: unspecified pancreatitis type Acute pancreatitis complication: unspecified Qualified Code(s): K85.90 - Acute pancreatitis without necrosis or infection, unspecified Is this a current diagnosis for this admission?: Yes (5) Nausea and vomiting Qualifiers: Vomiting type: unspecified Vomiting Intractability: non-intractable Qualified Code(s): R11.2 - Nausea with vomiting, unspecified Is this a current diagnosis for this admission?: Yes (6) Tachycardia Is this a current diagnosis for this admission?: Yes - Plan Summary Summary: 05/17/2019 I DC'd the morphine and switched to Dilaudid I have added his home medications of Celexa [place] soma and Xanax. A.m. also going to add Toradol 30 mg IV every 6 hours as needed Continue patient sips and chips until improved. Lipase is down to 766 this morning white count is still elevated 05/18/2019 Patient is doing better today asking about being fed. Patient's lipase is now down to 163 white counts down to 12,800 Will DC IV pain medicine increases pain pills advance his diet as tolerated starting with full liquids anticipate discharge tomorrow - Time Time Spent with patient: 15-24 minutes
[2019-05-18] MEDS ORDERED: MAGNESIUM CITRATE 296 ML BOTTLE PO ONE (17:00)
[2019-05-18] MEDS: NICOTINE 21 MG/24 HR PATCH.TD24 TD PRN (17:23)
[2019-05-18] MEDS: HYDROCODONE/ACETAMINOPHEN 10-325 MG TABLET PO PRN (21:15)
[2019-05-19] MEDS: HYDROCODONE/ACETAMINOPHEN 10-325 MG TABLET PO PRN (03:37)
[2019-05-19] MEDS: ONDANSETRON HCL INJ/PF 4 MG/2 ML SDV IV PRN (03:38)
[2019-05-19] MEDS: CARISOPRODOL 350 MG TABLET PO SCH (06:02)
[2019-05-19] MEDS: DEXTROSE 5%-LACTATED RINGERS 1,000 ML IV PRN (06:02)
[2019-05-19 06:28] LABS: HEMATOCRIT 40.3 % (37.9-51.0); HEMOGLOBIN 13.5 g/dL (13.5-17.0); MEAN CORPUSCULAR HEMOGLOBIN 32.1 pg (27.0-33.4); MEAN CORPUSCULAR HGB CONC 33.6 g/dL (32.0-36.0); MEAN CORPUSCULAR VOLUME 96 fl (80-97); PLATELET COUNT 155 10^3/uL (150-450); RED BLOOD COUNT 4.22 10^6/uL (4.35-5.55); RED CELL DISTRIBUTION WIDTH 13.6 % (11.5-14.0); WHITE BLOOD COUNT 15.1 10^3/uL (4.0-10.5)
[2019-05-19] MEDS ORDERED: POLYETHYLENE GLYCOL 3350 POWDER 17 GM/1 PACKET PO SCH (10:00)
[2019-05-19] MEDS: DOCUSATE SODIUM 100 MG CAPSULE PO SCH (10:10)
[2019-05-19] MEDS: ALPRAZOLAM 0.5 MG TABLET PO SCH (10:10)
[2019-05-19] MEDS: FAMOTIDINE INJ/PF 20 MG/2 ML SDV IV SCH (10:10)
[2019-05-19] MEDS: METOCLOPRAMIDE HCL INJ/PF 10 MG/2 ML SDV IV SCH (10:10)
[2019-05-19] MEDS: CITALOPRAM HYDROBROMIDE 20 MG TABLET PO SCH (10:10)
[2019-05-19] MEDS ORDERED: NA PHOS,M-B/NA PHOS,DI-BA (ADULT) 133 ML ENEMA PR ONE (11:00)
[2019-05-19 12:24] VITALS: BP 154/88
--- NOTE | 2019-05-19 15:18 | PDOC DISCHARGE SUMMARY ---
Impression - Admit/DC Date/PCP Admission Date/Primary Care Provider: 05/16/19 22:09 REED BUTLER Discharge Date: 05/19/19 - Discharge Diagnosis (1) Anxiety Is this a current diagnosis for this admission?: Yes (2) Chronic pain Is this a current diagnosis for this admission?: Yes (3) Abdominal pain Is this a current diagnosis for this admission?: Yes (4) Acute pancreatitis Is this a current diagnosis for this admission?: Yes (5) Nausea and vomiting Is this a current diagnosis for this admission?: Yes (6) Tachycardia Is this a current diagnosis for this admission?: Yes - Assessment Summary: 05/17/2019 I DC'd the morphine and switched to Dilaudid I have added his home medications of Celexa [place] soma and Xanax. A.m. also going to add Toradol 30 mg IV every 6 hours as needed Continue patient sips and chips until improved. Lipase is down to 766 this morning white count is still elevated 05/18/2019 Patient is doing better today asking about being fed. Patient's lipase is now down to 163 white counts down to 12,800 Will DC IV pain medicine increases pain pills advance his diet as tolerated starting with full liquids anticipate discharge tomorrow 05/19/2019. She is tolerating a diet with no vomiting. Patient had a good bowel movement this morning. Patient's hospitalization he was initially kept n.p.o. and given IV fluids as well as IV pain medicine. Patient had an appointment with his primary care provider on 2 days ago to write his monthly prescriptions asked for a 2-day supply he can get into be seen on Tuesday. I wrote for 2 days worth of Margie, Soma, Xanax, and 10 days worth of Celexa. Only prescription that he needed from his hospitalization was a NicoDerm patch. Turns out patient actually drinks more alcohol than he confessed to on his history and physical. This was probably the etiology of his pancreatitis. Patient is up and ambulatory at the time of discharge and medically stable - Additional Information Resuscitation Status: Full Code Discharge Diet: As Tolerated, Full Liquids Discharge Activity: Activity As Tolerated, Balance Activity w/Rest Referrals: REED BUTLER MD [Primary Care Provider] - Follow up as needed Prescriptions: Nicotine [Nicoderm 21 mg/24 Hr Transderm Patch] 1 each TD DAILYP PRN #30 patch.[id number] PRN Reason: Home Medications: Alprazolam [Xanax] 0.5 mg PO BID 05/17/19 Carisoprodol [Soma] 350 mg PO Q8 05/17/19 Citalopram Hydrobromide [Celexa] 20 mg PO DAILY 05/17/19 Hydrocodone/Acetaminophen [Margie 10-325 mg Tablet] 1 tab PO Q8 05/17/19 Nicotine [Nicoderm 21 mg/24 Hr Transderm Patch] 1 each TD DAILYP PRN #30 patch.[id number] 05/19/19 History of Present Illiness History of Present Illness: WAYNE MEADE is a 48 year old male Physical Exam Vital Signs: Temp Pulse Resp BP Pulse Ox 98.9 F 78 20 154/88 H 97 05/19/19 12:18 05/19/19 12:18 05/19/19 12:18 05/19/19 12:18 05/19/19 12:18 Intake & Output 05/18/19 05/19/19 05/20/19 06:59 06:59 06:59 Intake Total 6285 4454 1100 Balance 6285 4454 1100 Weight 81.9 kg 83 kg Results Laboratory Results: WBC 15.1 10^3/uL (4.0-10.5) H 05/19/19 06:17 RBC 4.22 10^6/uL (4.35-5.55) L 05/19/19 06:17 Hgb 13.5 g/dL (13.5-17.0) 05/19/19 06:17 Hct 40.3 % (37.9-51.0) 05/19/19 06:17 MCV 96 fl (80-97) 05/19/19 06:17 MCH 32.1 pg (27.0-33.4) 05/19/19 06:17 MCHC 33.6 g/dL (32.0-36.0) 05/19/19 06:17 RDW 13.6 % (11.5-14.0) 05/19/19 06:17 Plt Count 155 10^3/uL (150-450) 05/19/19 06:17 Lymph % (Auto) Not Reportable 05/17/19 11:42 [place] % (Auto) Not Reportable 05/17/19 11:42 Eos % (Auto) Not Reportable 05/17/19 11:42 Baso % (Auto) Not Reportable 05/17/19 11:42 Absolute Neuts (auto) Not Reportable 05/17/19 11:42 Absolute Lymphs (auto) Not Reportable 05/17/19 11:42 Absolute Monos (auto) Not Reportable 05/17/19 11:42 Absolute Eos (auto) Not Reportable 05/17/19 11:42 Absolute Basos (auto) Not Reportable 05/17/19 11:42 Total Counted 100 05/17/19 11:42 Seg Neutrophils % Not Reportable 05/17/19 11:42 Seg Neuts % (Manual) 90 % (42-78) H 05/17/19 11:42 Band Neutrophils % 2 % (3-5) L 05/17/19 11:42 Lymphocytes % (Manual) 2 % (13-45) L 05/17/19 11:42 Monocytes % (Manual) 6 % (3-13) 05/17/19 11:42 Eosinophils % (Manual) 0 % (0-6) 05/17/19 11:42 Basophils % (Manual) 0 % (0-2) 05/17/19 11:42 Abs Neuts (Manual) 15.2 10^3/uL (1.7-8.2) H 05/17/19 11:42 Abs Lymphs (Manual) 0.3 10^3/uL (0.5-4.7) L 05/17/19 11:42 Abs Monocytes (Manual) 1.0 10^3/uL (0.1-1.4) 05/17/19 11:42 Absolute Eos (Manual) 0.0 10^3/uL (0.0-0.6) 05/17/19 11:42 Abs Basophils (Manual) 0.0 10^3/uL (0.0-0.2) 05/17/19 11:42 Platelet Comment DECREASED 05/17/19 11:42 RBC Morph Comment NORMO-CYTIC/CHROMIC 05/17/19 11:42 Sodium 130.8 mmol/L (137-145) L 05/17/19 04:56 Potassium 3.5 mmol/L (3.6-5.0) L 05/17/19 04:56 Chloride 91 mmol/L (98-107) L 05/17/19 04:56 Carbon Dioxide 29 mmol/L (22-30) 05/17/19 04:56 Anion Gap 11 (5-19) 05/17/19 04:56 BUN 11 mg/dL (7-20) 05/17/19 04:56 Creatinine 0.84 mg/dL (0.52-1.25) 05/17/19 04:56 Est GFR ( Amer) > 60 (>60) 05/17/19 04:56 Est GFR (MDRD) Non-Af > 60 (>60) 05/17/19 04:56 Glucose 82 mg/dL (75-110) 05/17/19 04:56 POC Glucose 97 mg/dL (70-110) 05/18/19 15:10 Lactic Acid 0.8 mmol/L (0.7-2.1) 05/16/19 20:13 Calcium 8.8 mg/dL (8.4-10.2) 05/17/19 04:56 Magnesium 2.4 mg/dL (1.6-2.3) H 05/19/19 06:17 Total Bilirubin 2.9 mg/dL (0.2-1.3) H 05/16/19 19:14 Direct Bilirubin 1.5 mg/dL (0.0-0.4) H 05/16/19 19:14 Neonat Total Bilirubin Not Reportable 05/16/19 19:14 Neonat Direct Bilirubin Not Reportable 05/16/19 19:14 Neonat Indirect Bili Not Reportable 05/16/19 19:14 AST 87 U/L (17-59) H 05/16/19 19:14 ALT 50 U/L (<50) 05/16/19 19:14 Alkaline Phosphatase 98 U/L (38-126) 05/16/19 19:14 Ammonia 8.8 umol/L (9-33) L 05/17/19 04:56 Total Protein 6.3 g/dL (6.3-8.2) 05/16/19 19:14 Albumin 3.6 g/dL (3.5-5.0) 05/16/19 19:14 Triglycerides 129 mg/dL (<150) 05/17/19 04:56 Cholesterol 111.50 mg/dL (0-200) 05/17/19 04:56 LDL Cholesterol Direct 49 mg/dL (<100) 05/17/19 04:56 VLDL Cholesterol 26.0 mg/dL (10-31) 05/17/19 04:56 HDL Cholesterol 37 mg/dL (>40) L 05/17/19 04:56 Amylase 38 U/L (30-110) 05/18/19 03:57 Lipase 163.9 U/L (23-300) 05/18/19 03:57 TSH 1.41 uIU/mL (0.47-4.68) 05/17/19 04:56 Free T4 1.28 ng/dL (0.78-2.19) 05/17/19 04:56 Free T3 pg/mL 3.21 pg/mL (2.77-5.27) 05/17/19 04:56 Urine Color MICHELLE 05/17/19 03:10 Urine Appearance SLIGHTLY-CLOUDY 05/17/19 03:10 Urine pH 6.0 (5.0-9.0) 05/17/19 03:10 Ur Specific [place] 1.032 05/17/19 03:10 Urine Protein 100 mg/dL (NEGATIVE) H 05/17/19 03:10 Urine Glucose (UA) NEGATIVE mg/dL (NEGATIVE) 05/17/19 03:10 Urine Ketones 20 mg/dL (NEGATIVE) H 05/17/19 03:10 Urine Blood SMALL (NEGATIVE) H 05/17/19 03:10 Urine Nitrite NEGATIVE (NEGATIVE) 05/17/19 03:10 Urine Nitrite (Reflex) NEGATIVE (NEGATIVE) 05/16/19 18:25 Urine Bilirubin NEGATIVE (NEGATIVE) 05/17/19 03:10 Urine Urobilinogen 4.0 mg/dL (<2.0) H 05/17/19 03:10 Ur Leukocyte Esterase NEGATIVE (NEGATIVE) 05/17/19 03:10 Leukocyte Esterase Rfl NEGATIVE (NEGATIVE) 05/16/19 18:25 Urine WBC (Auto) 2 /HPF 05/17/19 03:10 Urine RBC (Auto) 1 /HPF 05/17/19 03:10 U Hyaline Cast (Auto) 4 /LPF 05/17/19 03:10 Urine Bacteria (Auto) TRACE /HPF 05/16/19 18:25 Urine WBC (Reflex) 9 /HPF 05/16/19 18:25 Squamous Epi Cells Auto 1 /HPF 05/16/19 18:25 Urine Mucus (Auto) RARE /LPF 05/17/19 03:10 Urine Ascorbic Acid NEGATIVE (NEGATIVE) 05/17/19 03:10 Impressions: Acute Abdomen Series 05/16/19 18:03 IMPRESSION: NONSPECIFIC BOWEL GAS PATTERN WITHOUT EVIDENCE FOR OBSTRUCTION. Abdomen/Pelvis CT 05/16/19 19:55 IMPRESSION: 1. Suspected acute pancreatitis. Mainly peripancreatic component. No obvious necrotizing pancreatitis. The surrounding edema/fluid is widespread but not prominent. Specifically, no suspicious large fluid collection and no obvious fluid collection with well-defined logan. There is also [id number] ascites in the pelvis. 2. Secondary thickening of the duodenum. Mild right colonic dilatation. Contracted left colon with prominence of submucosal fat. 3. Fatty liver. 4. Tiny left lower lobe atelectasis. 5. Distended gallbladder. No obvious gallbladder wall thickening. No biliary dilatation. Possible minimal common bile duct wall thickening. Stroke Is this a Stroke Patient?: No Acute Heart Failure - Is this a Heart Failure Patient?: No
== END 2019-05-19 13:42 | disposition home or self-care (01) | DRG 440 ==
LOC: ER 17:48 → EH 22:09 → 3S 05-17 01:16
PROVIDERS: ADMIT Emergency Medicine; ATTEND Emergency Medicine
DX: K85.20 Alcohol induced acute pancreatitis without necrosis or infection (principal); F41.9 Anxiety disorder, unspecified; G89.29 Other chronic pain; R00.0 Tachycardia, unspecified; Z82.49 Family history of ischemic heart disease and other diseases of the circulatory system; Z83.3 Family history of diabetes mellitus; Z72.89 Other problems related to lifestyle
CPT/HCPCS: 36415; 74022; 74177; 80048; 80053; 80061; 81001; 82140; 82150; 82962; 83605; 83690; 83735; 84439; 84443; 84481; 85025; 85027; 87040; 96361; 96365; 96375; 99285; J0696; J1170; J2270; J2405; J2765; J3490; J7030; J7121; S0028